=== PATIENT | female | born 1960 | race Caucasian/White ===

== ENCOUNTER 2023-10-03 05:11 | Observation (INO) ==
--- NOTE | 2023-09-07 15:33 | PAT Medication Instructions ---
Medication Instructions Date of Service September 07, 2023 Home Medications Medication Instructions Recorded ibuprofen 800 mg tablet 800 mg PO TID PRN pain #20 tabs 02/21/22 ibuprofen 800 mg tablet 800 mg PO TID PRN pain Medical Marijuana 1 PO UD dextroamphetamine-amphetamine 10 mg tablet (Adderall) 10 mg PO QAM lamotrigine 100 mg tablet (Lamictal) 200 mg PO QAM ASK your surgeon for instructions ibuprofen 800 mg tablet 800 mg PO TID PRN pain DO NOT take the morning of surgery Medical Marijuana 1 PO UD dextroamphetamine-amphetamine 10 mg tablet (Adderall) 10 mg PO QAM Take morning of surgery With a small sip of water, OTHERWISE NOTHING TO EAT OR DRINK AFTER MIDNIGHT: lamotrigine 100 mg tablet (Lamictal) 200 mg PO QAM Take evening before surgery Medical Marijuana 1 PO UD (if needed) Other Notes If you have any questions please call us at [phone] or [phone] or [phone] or [phone]
--- NOTE | 2023-09-24 14:12 | Anesthesiology Consultation ---
Date of Service September 24, 2023 Assessment & Plan (1) Encounter for pre-operative examination: Chart Review Chart Review: Acceptable Risk for Surgery and Patient seen in Pre Admission Testing - Please fax preop testing to PCP per PCP request ([facility]) for continuity of care Pt currently scheduled as 23 hours observation. If surgeon decides to change patient to Same Day Joint, patient would be acceptable risk for TKA, pending patient is motivated, has good support and surgeon's office completes [facility] Program preop requirements. Per PAT appt on 09/24/23, patient tested Covid positive 09/07/23 (had returned from [facility] on 09/05/23)- mild symptoms- have since resolved. No recent disease exposures. Will leave to surgeon's discretion if preop Covid testing needed Patient seen by PCP 09/24/23= seen for preop medical evaluation. Functional status greater than 4 METS. Patient is low medical risk for the procedure. Labs will be done outside [facility] today, patient to have labs faxed to PCP office Patient seen by cardio 09/22/23= Patient seen in EP follow up due to SB and RBBB. Doing well from cardiac perspective, no complaints. Getting TKR in few weeks. "She is at an acceptable moderate cardiovascular risk for her upcoming TKR no further cardiac testing necessary." No change in cardiac medications. Teaching & Discussion Pre-Anesthesia Teaching/Discussion Notes: Instructed NPO after midnight before surgery,except medications with 15 cc of water. Medication instructions provided according to the PAT guidelines. History Surgery Operation Date: 10/03/23 08:50 Proposed Procedures p Right Total Knee Arthroplasty - Nahun Grant MD Height/Weight Height: 5 ft 4.75 in Weight: 75.2 kg Allergies Allergy/AdvReac Type Severity Reaction Status Date / Time No Known Allergies Allergy Mild Unverified 09/07/23 14:10 Medications Home Medications Medication Instructions Recorded Confirmed Last Taken ibuprofen 800 mg tablet 800 mg PO TID PRN pain #20 tabs 02/21/22 09/07/23 Unknown Medical Marijuana 1 PO UD 09/07/23 Unknown dextroamphetamine-amphetamine 10 10 mg PO QAM 09/07/23 09/07/23 Unknown mg tablet (Adderall) lamotrigine 100 mg tablet 200 mg PO QAM 11/03/23 11/03/23 Unknown (Lamictal) Past Medical History Medical History (Updated 09/24/23 @ 14:18 by Nicky Serrano PA-C) Migraines Rare MVP (mitral valve prolapse) Per 11/2022 ECHO - mild posterior mitral leaflet prolapse. Significant MR absent Right bundle branch block Follows with Dr Cassandra James last seen 2021 Kidney stones x 1 - passed on own- no recent issues Attention deficit disorder (ADD) History of COVID-19 tested positive 09/07/2023 mild symptoms- symptoms have resolved Exercise / Class Metabolic Activity II 4-5 Yardwork/Stairs/Walk up hill (one flight of stairs - no chest pain or SOB ) Past Surgical History Surgical History Hx of arthroscopy of left knee Hx of bilateral cataract extraction Past Anesthesia History No Hx of Anesthesia Complications and No Family Hx of Anesthesia Complications History of PONV No Hx of PONV and No Hx of Motion Sickness Social History Smoking Status: Never smoker Do You Dip or Chew Tobacco: No Hx Alcohol Use: Yes Alcohol type: wine alcohol intake frequency: a few times a month Hx Substance Use: Yes substance use type: marijuana (does use medical marijuana (has card)) Review of Systems - Mild cough- improved with Maria M - Hx of snoring - on back- no hx of sleep study Patient denies chest pain, shortness of breath, dyspnea on exertion, reflux, cough, wheezing, palpitations. No hx of seizures, stroke, RI. No hx of blood clots or blood transfusions Physical Exam Vital Signs VITALS BP 102/60 P 90 TEMP 97.8 SP02 95% RESP 16 Constitutional no acute distress ENMT Mouth: no TMJ clicking Thyromental Distance: > or= 3.5 Finger Breadths (3.5) Mallampati Class: I Mouth / Teeth: 2 1. Cap Neck neck extension not limited Respiratory normal respiratory effort; no respiratory distress Auscultation: lungs clear to auscultation bilaterally; no wheezes Cardiovascular Rate/Rhythm: regular rate and regular rhythm Heart Sounds: no murmur Vessels: no carotid bruit Musculoskeletal Spine: no pain with cervical ROM Extremities: extremities normal to inspection Psychiatric Orientation: alert Lab Results Anesthesia Preop Results Results Anesthesia Widget: 2 WBC 6.52 K/ul (4.8-10.8) 09/24/23 Hgb 13.0 g/dl (12.0-16.0) 09/24/23 Hct 37.7 % (37.0-47.0) 09/24/23 Plt 208 K/uL (130-400) 09/24/23 Na 141 mmol/L (136-145) 09/24/23 K 3.5 mmol/L (3.5-5.1) 09/24/23 Cl 106 mmol/L (98-107) 09/24/23 CO2 26 mmol/L (21-32) 09/24/23 BUN 13 mg/dl (6-23) 09/24/23 Creat 0.77 mg/dl (0.6-1.2) 09/24/23 Glucose Level 126 mg/dl (70-99(Fasting)) H 09/24/23 PT 10.8 Seconds (9.0-12.0) 09/24/23 PTT 26.4 Seconds (21.0-31.0) 09/24/23 INR 1.0 (0.9-1.1) 09/24/23 Urine Color Dark Yellow 09/24/23 Urine Appearance Clear (Clear) 09/24/23 Urine pH 5.5 (4.5-7.5) 09/24/23 Urine Specific [place] 1.026 (1.000-1.030) 09/24/23 Urine Protein Negative (Negative) 09/24/23 Urine Glucose (UA) Negative (Negative) 09/24/23 Urine Ketones Trace (Negative) H 09/24/23 Urine Blood Trace (Negative) H 09/24/23 Urine Nitrite Negative (Negative) 09/24/23 Urine Bilirubin Negative (Negative) 09/24/23 Urine Urobilinogen Negative (Negative) 09/24/23 Urine Leukocyte Esterase Trace (Negative) H 09/24/23 Urine WBC (Auto) 5-10 /hpf (0-5) H 09/24/23 Urine RBC (Auto) 5-10 /hpf (0-4) H 09/24/23 Urine Hyaline Casts (Auto) 1-5 /lpf (0-5) 09/24/23 Urine Epithelial Cells (Auto) 10-20 /lpf (0-5) H 09/24/23 Urine Bacteria (Auto) Negative (Negative) 09/24/23 Blood Type O Positive 09/24/23 Antibody Screen NEGATIVE 09/24/23 Testing Electrocardiogram Date: 09/21/23 Findings: + NSR @ (76bpm ) Left axis deviation Chest X-Ray Date: 09/24/23 Findings: + NAD Echocardiogram Date: 11/08/22 EF: 55-59% LV Function: normal RWMA: + none Other Findings: + diastolic dysfunction (Grade I ); no LVH Mild posterior mitral leaflet prolapse. Significant MR absent Mild TR. No evidence of pulm HTN
--- OUTSIDE RECORDS SUMMARY | 2023-10-03 05:15 | External Medical Summary | Summary of Care ---
Author Name Unknown Organization [facility] Address [address] [place] [address] Phone [phone] Care Team Providers Care Elevator Repair Mechanic Name Role Phone Jamilah Nguyen DO Primary Care Provider [phone] Reason for Visit * Reason Onset Date Comments Appointment 06/28/2023 Encounter Details Date Type Department Care Team ([facility] Contact Info) Description 06/28/2023 Telephone Cardiology Sahra Crowley [address] [place] [address] [facility] [address] [facility] [address] Appointment Allergies No known active allergiesdocumented as of this encounter (statuses as of 09/27/2023) Medications Medication Sig Dispensed Refills Start Date End Date Status Continuation of patient use of medical marijuana is approved Start: 06/05/22 13:17:00 EDT, 1 inh, inhaled 0 06/05/2022 Active Fish Oil 1000 MG Oral Capsule Take 1 Capsule by mouth in the morning. 0 Active Melatonin 1 MG Oral Tablet Chewable Take by mouth at bedtime as needed for Insomnia. 0 Active Triamcinolone Acetonide 0.1 % External Cream (Aristocort)Indicat ions:Intrinsic atopic dermatitis Apply topically to affected area 2 times a day. To affected area. 60 g 5 12/22/2022 Active lamoTRIgine 100 MG Oral Tablet (LaMICtal)Indicatio ns:Mood disorder (HCC) Take 1 Tablet by mouth in the morning and 1 Tablet before bedtime. 180 Tablet 1 06/18/2023 3 Discontinue d(Refill) Amphetamine-Dextroa mphet ER 10 MG Oral Capsule Extended Release 24 Hour (Adderall XR)Indications:ADHD (attention deficit hyperactivity disorder), combined type Take 1 Capsule by mouth 2 times a day in the morning and at noon. 60 Capsule 0 06/18/2023 3 Discontinue d(Refill) documented as of this encounter (statuses as of 09/27/2023) Active Problems Problem Noted Date Diagnosed Date Seborrheic keratosis 04/11/2023 Personal history of kidney stones 03/08/2022 documented as of this encounter (statuses as of 09/27/2023) Immunizations Name Administration Dates Next Due PPD 03/03/2022 documented as of this encounter Social History Tobacco Use Types Packs/Day Years Used Date Smoking Tobacco: Never Smokeless Tobacco: Never Alcohol Use Standard Drinks/Week Comments Yes 0 (1 standard drink = 0.6 oz pur e alcohol) rare PHQ-2 Answer Date Recorded PHQ Adult Total Score 0 03/08/2022 Sex and Gender Information Value Date Recorded Sex Assigned at Not on file Gender Identity Not on file Sexual Orientation Not on file Job Start Date Occupation Industry Not on file Not on file Not on file Travel History Travel Start Travel End [facility] 08/21/2023 09/05/2023 documented as of this encounter Miscellaneous Notes * Telephone Encounter - Carolina Hunt OSA - 07/02/2023 9:20 AM EDT Spoke with pt. Explained Dr Garcia's schedule is now built so that return pts see Latasha Mcknight. Pt is scheduled with Latasha Grossman on a day when Dr Garcia is in the office. Keeping as scheduled. * Telephone Encounter - Gosia Gregory OSA - 06/28/2023 1:16 PM EDT Patient came in and was very upset that her appt on 09/21/2023 has been changed to being with the nurse and does NOT want to see her. She wants to have an appt with the doctor or she wants in canceled. I could not find anything with the doctor here. Please reach out to the patient at your earliest convenience. Thank you! documented in this encounter Plan of Treatment Upcoming Encounters Date Type Department Care Team (Late st Contact Info) Description 11/12/2023 3:30 PM EST Office Visit Psychiatry, [facility] [address] [facility] [place] [address] [place], BRYSON Obrien [address] [facility] [place] [address] 09/23/2024 8:30 AM EST Office Visit Cardiology, [facility] [address] [facility] [place] [id number] Latasha Cedeño CRNP [address] [place] [phone] Health Maintenance Due Date Last Done Comments COVID-19 Vaccine (#1) 1958 HIV Screening 1973 Hepatitis C Screening 1976 DTaP,Tdap,and Td Vaccines (1 - Tdap) 1977 Cologuard 2003 Colonoscopy 2003 Colorectal Cancer Screening 2003 Fecal Occult Blood Test 2003 Sigmoidoscopy 2003 Zoster Vaccines (1 of 2) 2008 Depression Screening 03/08/2023 03/08/2022 DXA Scan 2023 Pneumococcal Vaccine: 65+ Years (1 - PCV) 2023 Influenza Vaccine (FLU shot) (#1) 2023 Mammogram 06/28/2024 06/28/2023, 01/04/2022 Diabetes Screening 02/20/2025 02/20/2022, 01/04/2022 Lipid Panel 01/04/2027 01/04/2022 Pap Smear Discontinued 07/23/2010 GARDASIL-HPV IMMUNIZATION SERIES Aged Out No longer eligible based on patient's age to complete this topic Hepatitis B Aged Out No longer eligi ble based on patient's age to complete this topic MENINGOCOCCAL (MENACTRA/MENVEO) Aged Out No longer eligible based on patient's age to complete this topic documented as of this encounter Medical Devices Implanted Type Area Supervisor Composing Room Device Identifier Shelf Expiration Date Model / Serial / Lot Lens Intraoc 19.0 - [id number] - [id number] Implanted:Qty: 1 on 03/14/2022 by Db Reynoso MD at OR [facility] Left: Eye [employer] 10/04/2026 [id number] / [id number] / [id number] Lens Intraoc 19.5 - [id number] - [id number] Implanted:Qty: 1 on 05/16/2022 by Db Reynoso MD at OR [facility] [employer] 12/05/2026 [id number] / [id number] / [id number] documented as of this encounter Care Teams Elevator Repair Mechanic Relationship Specialty Start Date End Date Jamilah Nguyen DO [address] [place] [address] PCP - General Family Medicine 03/14/22 documented as of this encounter
[2023-10-03] MEDS ORDERED: TRANEXAMIC ACID 1,000 MG **IV Pre-op IV SCH (06:00)
[2023-10-03] MEDS ORDERED: ceFAZolin 2000MG 2,000 MG/15 ML SYR IV SCH (06:00)
[2023-10-03] MEDS ORDERED: ROPIVACAINE 0.5% HCL/PF 150 MG, BUPIVACAINE 0.75% MPF 20 ML, EPINEPHrine 0.15 MG, Ketor... INFIL SCH (06:00)
[2023-10-03] MEDS ORDERED: LR 500ML BOLUS, THEN 15ML/HR IV SCH (06:00)
[2023-10-03] MEDS ORDERED: LR 60ML/HR IV SCH (06:00)
[2023-10-03] MEDS ORDERED: BUPIVACAINE 0.25% PF 30 ML VIAL ONE (06:27)
[2023-10-03] MEDS ORDERED: BUPIVACAINE 0.5 % 5 MG/1 ML PF 10ML VIAL ONE (06:27)
--- NOTE | 2023-10-03 06:28 | History & Physical Bridge Note ---
Date of Service October 03, 2023 History & Physical Bridge Note I have examined the patient, reviewed the History & Physical and in the interval since the performance of the History & Physical I have noted the following changes of clinical significance: no changes noted
[2023-10-03] MEDS ORDERED: ORTHO JOINT ANESTHETIC ONE (06:40)
[2023-10-03] MEDS ORDERED: MIDAZOLAM HCL 1 MG/ML 2ML VIAL ONE ×2 (06:41→07:04)
[2023-10-03] MEDS ORDERED: ATROPINE SULFATE 0.1 MG/ML 10ML SYR IV PRN (06:57)
[2023-10-03] MEDS ORDERED: fentaNYL citrate PF 100 MCG/2 ML VIAL IV PRN (06:57)
[2023-10-03] MEDS ORDERED: ONDANSETRON INJ 2 MG/ML 2 ML VIAL IV PRN ×2 (06:57→10:25)
[2023-10-03] MEDS ORDERED: ePHEDrine sulfate 50 MG/ML AMP IV PRN (06:57)
[2023-10-03] MEDS ORDERED: PROPOFOL IV EMULSION 10 MG/ML 20 ML VIAL IV ONE ×4 (07:05→09:07)
[2023-10-03] MEDS ORDERED: LIDOCAINE 2% 2 ML VIAL/AMP(20MG/ML) INFIL ONE (07:05)
--- NOTE | 2023-10-03 08:25 | Post Operative Brief Note ---
Immediate Post Op Note v1 Date of Surgery October 03, 2023 Pre & Post Diagnosis Operation Date: 10/03/23 07:00 <No data on t osteoarthritis with varus deformity right knee pre and postop diagnosis same his case meets the specified criteria> I identified the patient and participated in the time-out.: Yes Procedure Op cemented right total knee replacement eration Date: 10/03/23 07:00 <No data on this case meets the specified criteria> Surgeon Nahun Grant MD Last Repairer Helper DEBORAH/Aakash Estimated Blood Loss 50 Findings Consistent with Post-Op Diagnosis Severe medial disease Fluids See anesthesia report
--- NOTE | 2023-10-03 08:31 | Operative Report ---
Post Operative Report Pre & Post Diagnosis Osteoarthritis with varus deformity right knee preop diagnosis Postop diagnosis same Operation Date: 10/03/23 07:00 <No data on this case meets the specified criteria> I identified the patient and participated in the time-out.: Yes Procedure Cemented right total knee replacement Operation Date: 10/03/23 07:00 <No data on this case meets the specified criteria> Surgeon Nahun Grant MD Visual Arts Teacher DEBORAH/Aakash Estimated Blood Loss 50 Findings Consistent with Post-Op Diagnosis Severe medial disease Fluids See anesthesia report Specimens Bone pathology Drains None Complications None Indications Failed conservative management marked pain recurrent swelling Description of Procedure After patient was appropriately identified and site verified and consent verified and antibiotics confirmed to be given right lower extremity was prepped and draped in routine fashion. Tourniquet was inflated to [address] exsanguination of the limb with a rubber Esmarch bandage for total of 48 minutes. Midline exposure was utilized and parapatellar arthrotomy was performed. Synovectomy completed. Osteophytes resected. Distal femur was then entered with a drill. Distal femoral cutting block applied 12 mm resection made distally. Tibia subluxated menisci resected after all the cruciates excised. Tibia then resected 4 mm. Extension gap was excellent. They are both sized to roughly 2-1/2. A 2 and half cutting block was applied to the femur appropriate cuts made the flexion gap was excellent the box cut was then made 2 and half it well. 2-1/2 broaching and reaming of the tibia was performed. With a 10 mm spacer the extension and flexion gaps were excellent. Stability was excellent patella tracked well. Patella was resected leaving 14 mm. A 35 patella was then placed after seating was made. Ortho mix was then injected all about the knee trial lengths were removed and the wound irrigated with Betadine for 3 minutes and then Pulsavac and then the permanent cemented in position tibia femur and patella in that order after 12 minutes the tourniquet was deflated at 14 minutes the knee was flexed no cement removal was required trial liner was removed the wound was irrigated 1 final time with Betadine and Pulsavac and then the permanent liner seated the knee reduced and then closed with #2 Vicryl 2-0 Vicryl and standstill clips dressing applied patient transferred recovery in satisfactory addition he tolerated the procedure well. Summary of implant size 2 and half femur posterior cruciate substituting size 2- 1/2 tray size 2-1/2 spacer 10 mm thick posterior cruciate substituting and a 35 3 peg patella. 2 bags of [place] G cement. EBL 50 cc or less crystalloid per anesthesia pathology pending DVT prophylaxis per protocol. I attest to the content of the Intraoperative Record and any orders documented therein. Any exceptions are noted below.
--- NOTE | 2023-10-03 08:33 | Orthopedic Progress Note ---
Date of Service October 03, 2023 Orthopedic Progress Note Tolerated the right total knee replacement well. Vital signs stable denies chest pain shortness breath fever chills nausea vomiting headache. Wound dressing clean dry and intact. Spinal in place. X-ray pending. Tolerated procedure well. Family contacted. DVT prophylaxis per protocol.
--- NOTE | 2023-10-03 08:33 | Discharge Summary ---
Date of Service October 04, 2023 Admission HPI Per Admitting Provider [facility] right knee pain failed conservative management Principal Diagnosis Osteoarthritis right knee Discharge Data Allergies Allergy/AdvReac Type Severity Reaction Status Date / Time No Known Allergies Allergy Mild Verified 10/03/23 05:33 Vaccinations None Consultations None Procedures Performed Cemented right total knee replacement Operation Date: 10/03/23 07:00 <No data on this case meets the specified criteria> Ordered Studies 10/03/23 05:00 US - OR guided needle placemen Routine Hospital Course (1) Status post right knee replacement: Total Time Total Time Spent Total Time Spent (In Minutes): 5 minutes Discharge Plan Discharge Items Patient Disposition: Home - Home Health Services Reason For Visit: RIGHT KNEE S/P TKA Discharge Diagnosis: Right knee s/p total knee replacement Condition on Discharge: Good Activity: Per Instructions section Lifting: Wait until after follow-up appointment Bathing: Keep incision dry Sexual Activity: Wait until after follow-up appointment Exercise/Sports: Wait until after follow-up appointment Driving/Machine Use: No driving until cleared by Dr. Grant Weightbearing: Full weightbearing Non-emergency contact: Surgeon Call non-emergency contact if: you have any medication questions, your pain is not controlled, your temperature is above 101, your wound has increased redness, your wound has increased drainage and your wound pain has increased Follow-up/Referrals: Jamilah Nguyen DO [Primary Care Provider] - Diet: Regular Addtl Attending Provider Instructions: New Medicine: * You will likely be taking one or more of these medications: 1. Percocet - Take, as directed, when you need it, every four to six hours to control your pain. 2. Iron Sulfate - Take three times each day for the month after surgery to help you replace the blood lost during surgery. 3. Eliquis - Thins your blood to lessen the chance of forming a blood clot. * The most common side effects of pain medicine and iron are nausea and constipation. If nausea or constipation is too much of a problem or if you have any questions about your new medicines or doses, call [facility] at . We will try to help you manage these issues. "VERY IMPORTANT TO READ AND REVIEW" Blood Clots and Blood Thinning Medicine: * You are given Eliquis during the immediate post-operative period to lessen the risk of blood clots forming in your legs and/or lungs. It is usually given for six weeks after surgery. Pain: * The immediate post-operative period after knee replacement surgery is often quite painful. * You are given a prescription for pain medicine. You should take it, as directed, when you need it, especially before physical therapy and before going to bed. Pain that interferes with sleep is very common and can last several months. * You will likely need pain medicine for the first four to six weeks. It will not stop all of the pain. The pain will lessen and as you feel better, you may change to milder pain medicine such as Tylenol. * The most common side effects of pain medicine are nausea and constipation, so don't take more than you need. Physical Therapy: * You will have physical therapy two or three times each week for four to six weeks after your surgery in order to regain your knee range of motion and to retrain your knee to work properly. * It is just as important to make sure you are getting your knee perfectly straight as it is to regain your knee bend. * Taking a pain pill an hour before therapy can help you have a more productive and comfortable therapy session if needed. Home Exercise: * You were shown a series of exercises (heel props, heel slides, etc.) in the hospital. Do these exercises three to four times each day including the exercises you were shown in physical therapy. Walking: * Get up and walk several times each day. For the first four weeks, try not to stand or walk for more than one hour at a time. If you do stand or walk for more than one hour, you will not hurt anything, but your knee and leg will likely swell. * As you feel comfortable, you may change from the walker or crutches to a cane and then to independent walking. SELF CARE INSTRUCTIONS AFTER TOTAL KNEE REPLACEMENT A. You may need to continue a physical therapy program after discharge from the hospital. There are several options available to you. Your doctor will assist you in selecting the best one for you. 1. An out-patient facility 2 to 3 times a week for therapy or home therapy. 2. Continue working on all exercises taught to you in the hospital. Your goals should be to increase bending of your knee to 90 degrees and beyond and to fully straighten your knee. B. You may progress at your own pace from walking with a walker or crutches to a cane; then to no assistive devices. C. Make walking a part of your daily routine. Be up as much as comfortable with rest periods throughout the day. Rest with leg elevation is very important. Use the ice wrap frequently for the first 3-4 weeks. D. There are no restrictions on activities. You may ride in a car, shop, participate in meatcutter and all social activities. E. Wear the long elastic stockings (BRAYAN hose) 20 hours a day for six weeks after surgery. They can be removed several times a day for laundering and for a shower. F. Do not place a pillow behind your knee when resting. A pillow at your ankle is okay. VERY IMPORTANT TO READ AND REVIEW A. Take Eliquis (blood thinning medication) as directed by your doctor. B. There are a few signs you need to watch for after you are home. Call [facility] if you notice any of the followin. Increased severe knee pain. Some pain is expected especially when you exercise. 2. Increased swelling in your leg or knee; pain or swelling of the calf muscle in either lower leg. 3. Any fluid drainage from the incision. 4. Shortness of breath or chest pain. C. Please call [facility] at if you have any concerns or questions about your operation or recovery. The doctor or his nurse will return your call promptly. D. You must take antibiotics before dental work, bladder, bowel or other surgery. Call the office to obtain a prescription at least 2 days prior to your appointment. * CALL IF INCREASED PAIN, REDNESS, DRAINAGE OR FEVER GREATER THAT 101. * Sutures should be removed 12-14 days after surgery unless you are on chronic steroids, then it will be 14-18 days after surgery. Call your doctor if: * Temperature above 101 degrees F. * Pain not relieved by pain medicine ordered. * Increased drainage or redness from incision. * Notify your doctor with any questions or concerns. Use your knee immobilizer when out of bed on and Sunday. It can be discontinued entirely on Sunday morning. Use your walker when ambulating or standing ice and elevate the knee frequently to reduce pain/swelling Leave the dressings in place through the weekend. They may be changed on Sunday by home health nursing if needed for soiling. Do not leave the wound uncovered. Follow up in the office in 2 week as scheduled for staple removal. Pending Studies at Discharge: Yes Studies:: Bone pathology Stand-Alone Forms: [facility] [employer] Smoking Cessation Medications and DC Order Prescriptions: No Action ibuprofen 800 mg tablet 800 mg PO TID PRN (Reason: pain) Qty: 20 0RF dextroamphetamine-amphetamine [Adderall] 10 mg Tablet 10 mg PO QAM lamotrigine [Lamictal] 100 mg Tablet 200 mg PO QAM Medical Marijuana 1 PO UD Admission Data Admit Date/Time: 10/03/23 08:45 Attending Provider: Nahun Grant Admit Provider: Nahun Grant Primary Care Provider: Jamilah Nguyen Other Providers: [facility]
--- NOTE | 2023-10-03 08:39 | Operative Report ---
Post Operative Report Pre & Post Diagnosis Operation Date: 10/03/23 07:00 Pre-Op Diagnosis: Right Knee Primary Osteoarthritis Post-Op Diagnosis: Right Knee Primary Osteoarthritis I identified the patient and participated in the time-out.: Yes Procedure Operation Date: 10/03/23 07:00 Actual Procedures p Right Total Knee Arthroplasty(Right) - Nahun Grant MD Surgeon Nahun Grant MD Field Counsel DEBORAH/Aakash Estimated Blood Loss 50 Findings Consistent with Post-Op Diagnosis Same as postoperative diagnosis. Specimens The resected femoral, tibial and patellar cuts. Description of Procedure Please see detailed operative note. I attest to the content of the Intraoperative Record and any orders documented therein. Any exceptions are noted below.
--- NOTE | 2023-10-03 08:48 | Operative Report ---
Post Operative Report Pre & Post Diagnosis Operation Date: 10/03/23 07:00 Pre-Op Diagnosis: Right Knee Primary Osteoarthritis Post-Op Diagnosis: Right Knee Primary Osteoarthritis I identified the patient and participated in the time-out.: Yes Procedure Operation Date: 10/03/23 07:00 Actual Procedures p Right Total Knee Arthroplasty(Right) - Nahun Grant MD Surgeon IRVING Grant MD Bid Manager DEBORAH/Aakash WALKER Estimated Blood Loss 50 Findings Consistent with Post-Op Diagnosis see operative report Specimens see operative report Drains none Complications none Disposition Accompanied Patient To Recovery: Yes Indications This 63 year old female presents to the office with complaints of persisting right knee pain. She had tried conservative care measures without improvement. She elected to proceed with surgical invention after being educated about potential risks and outcomes. Preoperative imaging was obtained. Description of Procedure The patient was administered a spinal anesthetic and then taken to the operating room where she was given sedation. She was prepped and draped in the usual sterile fashion. Please see Dr. Grant's operative report for specifics of the procedure. I was present for the entire case from initial patient positioning through final wound closure. Assistance was provided in tissue retraction, hemostasis, trial implant placement, final implant placement, and final wound closure. The patient was taken to the recovery room in satisfactory condition. I attest to the content of the Intraoperative Record and any orders documented therein. Any exceptions are noted below.
[2023-10-03] MEDS ORDERED: PHENYLEPHRINE 100MCG/ML 10ML SYR IV ONE ×3 (09:07)
--- NOTE | 2023-10-03 09:46 | XRay Report ---
XR knee RT 1 or 2V routine HISTORY: 63 years-old Female S/P R TKA right knee arthroplasty COMPARISON: 09/24/2023 TECHNIQUE: 2 views of the right knee FINDINGS: Total joint arthroplasty with patellar resurfacing. Anterior midline skin [place] are noted along wit h expected postoperative soft tissue swelling and deep tissue air. No acute fracture or unexpected op aque foreign body. IMPRESSION: Total joint arthroplasty with expected postoperative changes. ACT 112: Negative or not required by law. The above report was generated using voice recognition software. It may contain grammatical, syntax o r spelling errors. Electronically signed by: Indra Kirkland M.D. 10/03/2023 9:45 AM
[2023-10-03] MEDS ORDERED: METOCLOPRAMIDE HCL INJ 5 MG/ML 2 ML VIAL IV PRN (10:25)
[2023-10-03] MEDS ORDERED: ALUMINUM/MAGNESIUM SUSP 30 ML UDC PO PRN (10:25)
[2023-10-03] MEDS ORDERED: diphenhydrAMINE 50 MG/ML VIAL IV PRN (10:25)
[2023-10-03] MEDS ORDERED: bisacodyL 10 MG SUPP PR PRN (10:25)
[2023-10-03] MEDS ORDERED: NALOXONE HCL 0.4 MG/1 ML VIAL/CARP IV PRN (10:25)
[2023-10-03] MEDS ORDERED: HYDROmorphone INJ 0.5 MG/0.5 ML SYR IV PRN (10:25)
[2023-10-03] MEDS ORDERED: oxyCODONE HCL IR 5 MG TAB (IMMEDIATE RELEASE) PO PRN (10:25)
[2023-10-03] MEDS ORDERED: SODIUM CHLORIDE 0.9% 1,000 ML IV SCH (10:25)
[2023-10-03] MEDS ORDERED: MAGNESIUM HYDROXIDE SUSP 30 ML UDC PO PRN (10:25)
[2023-10-03] MEDS ORDERED: PNEUMOCOCCAL VACCINE (PCV20) 20-VAL CONJ-DIP CRM/PF 0.5 ML SYR IM ONE (10:35)
[2023-10-03] MEDS: MULTIVITAMIN TAB PO SCH (11:53)
[2023-10-03] MEDS: DOCUSATE SODIUM 100 MG CAP PO SCH ×2 (11:54→21:58)
[2023-10-03] MEDS: lamoTRIgine 100 MG TAB PO SCH (12:10)
[2023-10-03] MEDS: KETOROLAC TROMETHAMINE 15 MG/ML VIAL IV SCH ×3 (12:59→21:58)
[2023-10-03] MEDS: DEXTROAMPHETAMINE/AMPHETAMINE ER 10 MG CAP PO SCH (12:59)
--- NOTE | 2023-10-03 13:56 | Anesthesiology Progress Note ---
Date of Service October 03, 2023 Anesthesia Post Procedure Vital Signs Vital Signs: Temp Pulse Pulse Resp BP Pulse Ox O2 Del Method 10/03/23 13:20 36.8 C 76 18 99/64 L 96 Room Air 10/03/23 12:29 36.7 C 83 16 101/60 96 Room Air 10/03/23 11:20 36.4 C L 64 18 114/72 99 Room Air 10/03/23 10:50 36.4 C L 60 18 109/70 98 Room Air 10/03/23 10:05 36.3 C L 65 14 102/59 L 97 Room Air 10/03/23 09:55 65 14 102/60 95 Room Air 10/03/23 09:45 65 14 109/60 96 Room Air 10/03/23 09:35 36.3 C L 68 14 104/62 96 Room Air 10/03/23 09:25 60 14 107/65 96 Room Air 10/03/23 09:15 74 16 107/67 96 Room Air 10/03/23 09:05 72 17 106/61 100 Room Air 10/03/23 08:55 72 14 113/64 98 Room Air 10/03/23 08:45 82 14 102/64 100 Room Air 10/03/23 08:35 36.8 C 75 14 112/65 100 Oxymask 10/03/23 05:36 36.4 C L 67 21 116/70 97 Room Air O2 Flow Rate 10/03/23 13:20 10/03/23 12:29 10/03/23 11:20 10/03/23 10:50 10/03/23 10:05 10/03/23 09:55 10/03/23 09:45 10/03/23 09:35 10/03/23 09:25 10/03/23 09:15 10/03/23 09:05 10/03/23 08:55 10/03/23 08:45 10/03/23 08:35 4 10/03/23 05:36 Pain Intensity Right Knee: Pain Intensity: 1 Transfer of Care Handoff Completed per policy Notes Mental Status: alert / awake / arousable and participated in evaluation Patient Amnestic to Procedure: Yes Nausea / Vomiting: adequately controlled Pain: adequately controlled Airway Patency, RR, SpO2: stable & adequate BP & HR: stable & adequate Hydration State: stable & adequate Neuraxial Anesthesia: was administered and sensory block is resolving Anesthetic Complications: no major complications apparent and Pt Satisfied with anesthetic care
[2023-10-03] MEDS ORDERED: TRANEXAMIC ACID / 0.7% NACL 1,000 MG/100 ML BAG IV SCH (14:45)
[2023-10-03] MEDS: ceFAZolin 2000MG 2,000 MG/15 ML SYR IV SCH ×2 (14:46→21:58)
[2023-10-03] MEDS: ACETAMINOPHEN 500 MG TAB PO SCH ×2 (15:01→21:58)
[2023-10-03] MEDS: FERROUS GLUCONATE 324 MG TAB PO SCH (17:05)
[2023-10-03] MEDS: ASCORBIC ACID 500 MG TAB PO SCH (17:05)
[2023-10-03] MEDS ORDERED: SENNA 8.6 MG TAB PO SCH (21:00)
[2023-10-04] MEDS: ACETAMINOPHEN 500 MG TAB PO SCH (05:09)
[2023-10-04] MEDS: KETOROLAC TROMETHAMINE 15 MG/ML VIAL IV SCH (05:09)
--- NOTE | 2023-10-04 07:00 | Orthopedic Progress Note ---
Date of Service October 04, 2023 Assessment & Plan Admission and Anticipated Discharge Date Admission Date: October 03, 2023 Orthopedic Progress Note Update #1 status post right total knee replacement. Patient is doing well denies any chest pain shortness of breath fever chills nausea vomiting or headache. Vital signs are stable she is afebrile. Neurovascular check from sciatic nerve is normal. Calf nontender. A.m. labs are pending. Is up around the bathroom doing well. Assessment doing well discharge home today after PT OT initiate blood thinners 24 hours postop. Follow-up in 2 weeks.
[2023-10-04 07:18] LABS: Hematocrit (blood only) 31.7 % (37.0-47.0); Hemoglobin 10.9 g/dl (12.0-16.0); Mean Corpuscular Hemoglobin 30.3 pg (25.0-34.0); Mean Corpuscular Hgb Conc 34.4 g/dL (32.0-36.0); Mean Corpuscular Volume 88.1 fL (80.0-100.0); Mean Platelet Volume 10.7 fL (9.4-12.4); Platelet Count 180 K/uL (130-400); RDW Coefficient of Variation 12.8 % (11.5-14.5); RDW Standard Deviation 41.4 fL (36.4-46.3); White Blood Count 12.38 K/ul (4.8-10.8)
[2023-10-04 07:38] LABS: BUN Creatinine Ratio 28.2 (10-20); Calcium 8.6 mg/dl (8.6-10.3); Creatinine Clr Calc Pharmacy 71.9 ml/min; Est GFR (African American) 92.5 ml/min; Est GFR (Non-African American) 79.8 ml/min; Potassium 4.1 mmol/L (3.5-5.1)
[2023-10-04] MEDS ORDERED: dexAMETHasone 10 MG in SYRINGE 0 ML IV SCH (08:00)
[2023-10-04] MEDS: DOCUSATE SODIUM 100 MG CAP PO SCH (08:35)
[2023-10-04] MEDS: lamoTRIgine 100 MG TAB PO SCH (08:35)
[2023-10-04] MEDS: ASCORBIC ACID 500 MG TAB PO SCH (08:35)
[2023-10-04] MEDS: DEXTROAMPHETAMINE/AMPHETAMINE ER 10 MG CAP PO SCH (08:35)
[2023-10-04] MEDS: MULTIVITAMIN TAB PO SCH (08:35)
[2023-10-04] MEDS: FERROUS GLUCONATE 324 MG TAB PO SCH (08:35)
[2023-10-04] MEDS ORDERED: APIXABAN 2.5 MG TAB PO SCH (09:00)
--- NOTE | 2023-10-04 09:32 | Orthopedic Progress Note ---
Date of Service October 04, 2023 Assessment & Plan (1) Status post right knee replacement: Plan: The patient was educated regarding today's findings. Her dressings were changed by me. BRAYAN hose was applied. Importance of only wearing the knee immobilizer when out of bed was discussed at length. She may discontinue it entirely on Sunday morning. Ice and elevate the knee frequently to reduce pain and swelling. Prescriptions for Eliquis and Percocet were sent to her pharmacy. She received her first dose of Eliquis this morning. Follow-up in the office in 2 weeks as scheduled for staple removal. Written discharge instructions were provided. Call the office with any other concerns. Admission and Anticipated Discharge Date Admission Date: October 03, 2023 Subjective This 63-year-old female is seen today in her room. She is 1 day status post right total knee arthroplasty. She says she feels pretty well. She has minimal knee pain. She feels ready for discharge. She denies any chest pain, shortness of breath, nausea, vomiting, abdominal pain, headache, numbness, or tingling. She does have some thigh pain in the area of her tourniquet. She has already finished her breakfast and participated with physical therapy. She is waiting for occupational therapy. No other complaints. Review of Systems Review of Systems: Unchanged from yesterday. Physical Exam Physical Exam: General: Well-developed, well-nourished, middle-aged female, in no acute distress. Laying in bed. Alert and oriented. Conversing with her daughter. Skin: Warm and dry with good turgor. No rashes. Postsurgical dressing is in place on the right knee. Upon removal, she has scant dried blood on her most inner dressings. There is expected postoperative edema. No ecchymosis or erythema. John are in place. Wound edges are well approximated. No active bleeding. Musculoskeletal: Right knee evaluation reveals intact motion to the hip, knee, ankle, and toes. She is able to set her quad and perform straight leg raise. She has full terminal extension. Flexion to greater than 45 degrees. There is mild discomfort with palpation over the upper thigh in the area of her tourniquet placement. Neurologic: Gross sensation is intact across the right leg by soft touch. Peripheral pulses are 2+. Results & Data Vital Signs (Past 12 Hours) Vital Signs Temp Pulse Resp BP BP Pulse Ox O2 Del Method 11/30/23 07:31 36.4 C L 69 16 92/54 L 97 Room Air 10/04/23 01:58 36.7 C 84 16 92/60 L 93/58 L 95 Room Air 10/03/23 22:45 36.3 C L 72 16 98/60 L 96 Room Air Laboratory Results CBC obtained this morning shows a white count of 12.38. H&H of 10.9 and 31.7. Platelets 180,000. PRP shows sodium 138, potassium 4.1, chloride 107, CO2 25, BUN of 22 with creatinine 0.78. Anion gap of 6. Glucose normal at 109.
== END 2023-10-04 10:46 | disposition home health service (06) ==
LOC: ASU 05:11 → 3N 05:11